=== PATIENT | female | born 1985 | race Caucasian/White ===

== ENCOUNTER → 2020-06-12 | Outpatient (CLI) | payer BC ==
--- NOTE | 2020-06-12 09:32 | MM ---
Reason for exam: screening (asymptomatic). Baseline mammogram. History: Patient is nulliparous. Family history of breast cancer in mother at age 50 and breast cancer in paternal grandmother at age 80. Physical Findings: Nurse did not find any significant physical abnormalities on exam. MG 3D Screening Mammo W/Cad Bilateral CC and MLO view(s) were taken. The breast tissue is heterogeneously dense. This may lower the sensitivity of mammography. Benign appearing calcifications in the right breast. These results were verbally communicated with the patient and result sheet given to the patient on 06/12/20. ASSESSMENT: Benign, BI-RAD 2 RECOMMENDATION: Routine screening mammogram of both breasts in 1 year.
== END | disposition home or self-care (01) ==
LOC: RADMAMWWP 08:33
PROVIDERS: ATTEND Obstetrics & Gynecology
DX: Z12.31 Encounter for screening mammogram for malignant neoplasm of breast (principal)
CPT/HCPCS: 77063; 77067

== ENCOUNTER → 2021-04-04 | Outpatient (CLI) | payer BC ==
--- NOTE | 2021-04-05 11:00 | ECHOF ---
Referral Reason:[id number] syncope and collapse MEASUREMENTS -------- HEIGHT: 162.6 cm WEIGHT: 64.4 kg BP: RVIDd: 2.8 cm (< 3.3) IVSd: 0.7 cm (0.6 - 1.1) LVIDd: 4.6 cm (3.9 - 5.3) LVPWd: 0.8 cm (0.6 - 1.1) IVSs: 1.3 cm LVIDs: 2.9 cm LVPWs: 1.2 cm LA Diam: 3.0 cm (2.7 - 3.8) LAESV Index (A-L): 22.60 ml/m Ao Diam: 2.8 cm (2.0 - 3.7) AV Cusp: 2.1 cm (1.5 - 2.6) MV EXCURSION: 17.440 mm (> 18.000) MV EF SLOPE: 111 mm/s (70 - 150) EPSS: 0.4 cm MV E Ulysses: 1.19 m/s MV DecT: 213 ms MV A Ulysses: 0.48 m/s MV E/A Ratio: 2.47 RAP: 5.00 mmHg RVSP: 26.36 mmHg FINDINGS -------- Sinus rhythm. This was a technically good study. The left ventricular size is normal. Left ventricular wall thickness is normal. Overall left vent ricular systolic function is normal with, an EF between 60 - 65 %. The right ventricle is normal in size. Normal LA size by volume 22+/-6 ml/m2. The right atrium is normal in size. Interatrial and interventricular septum intact. The aortic valve is trileaflet, and appears structurally normal. No aortic stenosis or regurgitation. The mitral valve is normal. Mild tricuspid regurgitation present. Right ventricular systolic pressure is normal at < 35 mmHg. The pulmonic valve is normal. The aortic root size is normal. Normal inferior vena cava with normal inspiratory collapse consistent with estimated right atrial pre ssure of 5 mmHg. There is no pericardial effusion. CONCLUSIONS -------- 1. The left ventricular size is normal. 2. Left ventricular wall thickness is normal. 3. Overall left ventricular systolic function is normal with, an EF between 60 - 65 %. 4. The aortic valve is trileaflet, and appears structurally normal. No aortic stenosis or regurgitati on. 5. Mild tricuspid regurgitation present. 6. There is no pericardial effusion. SOFTWARE CONFIGURATION MANAGER: Rahel Newby RDCS
--- NOTE | 2021-04-26 08:40 | EM ---
14 Day Event monitor note: Patient wore an event monitor for 14 days from 04/04/2021 until 04/17/2021. Findings: Patient's baseline heart rate was normal sinus rhythm. There were no signficant atrial fibrillation, atrial flutter, or ventricular tachycardia episodes. There were no significant pauses greater than 2 seconds. There were a total of 43 symptom activated an auto captured events. Patient's symptoms were not specified however corresponded with normal sinus rhythm. There was occasional asymptomatic sinus bradycardia noted in the morning hours. There were no PVCs and rare PACs which patient was asymptomatic for. Conclusions: Normal 14 day event monitor showing only sinus rhythm. Patient's symptoms corresponded with normal sinus rhythm. [facility]
== END | disposition home or self-care (01) ==
LOC: RADECHMAIN 11:49
PROVIDERS: ATTEND Family Medicine
DX: R55 Syncope and collapse (principal); I07.1 Rheumatic tricuspid insufficiency
CPT/HCPCS: 93270; 93306

== ENCOUNTER 2022-05-01 20:32 | Emergency (ER) | payer BC ==
[2022-05-01 20:38] VITALS: BP 177/74; TEMP 99.2
[2022-05-01] MEDS ORDERED: MORPHINE SULFATE 4 MG/ML SYRINGE IM STA (20:50)
[2022-05-01] MEDS ORDERED: LIDOCAINE 1% INJ 10MG/ML (5 ML VIAL-PF) SQ ONE (20:51)
--- NOTE | 2022-05-01 21:08 | ED ---
Animal Bite HPI - General Chief Complaint: Animal Bite Stated Complaint: Dog Bite both arms Time Seen by Provider: 05/01/22 20:55 Source: patient, family, RN notes reviewed, old records reviewed Mode of arrival: ambulatory - History of Present Illness Initial Comments: Tearful 37-year-old female presents to the emergency room after sustaining multiple puncture wounds and lacerations from her dog. She states that her Pomeranian and her [id number]'s dog were playing and they both went for the same toy, the larger dog grabbed her small dog and she was trying to keep them a part when her dog bit her. She denies any other injuries. She states that both dogs have immunizations up-to-date. Her tetanus shot is up-to-date. MD Complaint: animal bite -: minutes(s) (30) Left: Forearm, Right: Forearm Animal: dog Description: household pet, immunizations UTD Mechanism: bite Pain Description: sharp, constant Severity scale (1-10): 10 Context: playing with animal Associated Symptoms: none - Related Data Patient Tetanus UTD: Yes Previous Rx's Medication Instructions Recorded Amoxic-Pot Clav 875-125Mg 1 tab PO BID 10 Days #20 tab 05/01/22 [Augmentin 875-125] Bacitracin Zinc Oint 1 applic TOPICAL BID 5 Days #28 gm 05/01/22 Allergies Allergy/AdvReac Type Severity Reaction Status Date / Time No Known Allergies Allergy Verified 05/01/22 21:15 Review of Systems ROS Statement: Those systems with pertinent positive or pertinent negative responses have been documented in the HPI. ROS Other: All systems not noted in ROS Statement are negative. Past Medical History Past Medical History: No Reported History History of Any Multi-Drug Resistant Organisms: None Reported Past Surgical History: No Surgical Hx Reported Past Psychological History: Anxiety, Depression Smoking Status: Never smoker Past Alcohol Use History: None Reported Past Drug Use History: None Reported General Exam General appearance: alert, in no apparent distress Head exam: Present: atraumatic Eye exam: Absent: periorbital swelling Respiratory exam: Absent: respiratory distress, accessory muscle use Cardiovascular Exam: Present: tachycardia Extremities exam: Present: full ROM, tenderness, normal capillary refill Left Forearm Wrist exam: Present: other (Multiple punctures) Hand Wrist exam: Present: tenderness, laceration (4cm anterior wrist) Neuro motor exam: Present: wrist extension intact, thumb opposition intact, thumb IP flexion intact, thumb adduction intact Neurosensory exam: Present: radial nerve intact, ulnar nerve intact, median nerve intact Vascular: Present: normal capillary refill. Absent: vascular compromise Right Forearm Wrist exam: Present: full ROM, tenderness, swelling, laceration (4cm) Neuro motor exam: Present: wrist extension intact, thumb opposition intact, thumb IP flexion intact, thumb adduction intact Neurosensory exam: Present: radial nerve intact, ulnar nerve intact, median nerve intact Vascular: Present: normal capillary refill. Absent: vascular compromise Neurological exam: Present: alert, oriented X3 Psychiatric exam: Present: normal affect, normal mood, other (tearful and hyperventilating) Skin exam: Present: warm, normal color. Absent: cyanosis, diaphoretic Course Vital Signs 05/01/22 05/01/22 20:32 22:06 Temperature 99.2 F Pulse Rate 138 H 86 Respiratory 22 18 Rate Blood Pressure 177/74 O2 Sat by Pulse 98 100 Oximetry Procedures - Laceration Laceration #1 Consent Obtained: verbal consent Indication: laceration Site: upper extremity (left anterior wrist) Size (cm): 4 Description: linear Depth: simple, single layer Anesthetic Used: lidocaine 1% Anesthesia Technique: local infiltration Pre-repair: irrigated extensively Type of Sutures: nylon Size of Sutures: 4-0 Number of Sutures: 2 Technique: simple, interrupted Patient Tolerated Procedure: well Laceration #2 Consent Obtained: verbal consent Indication: laceration Site: upper extremity (right forearm) Size (cm): 4 Description: linear Depth: simple, single layer Anesthetic Used: lidocaine 1% Anesthesia Technique: local infiltration Pre-repair: irrigated extensively Type of Sutures: nylon Size of Sutures: 4-0 Number of Sutures: 3 Technique: simple, interrupted Patient Tolerated Procedure: well, no complications Medical Decision Making - Medical Decision Making Patient presents after being bitten multiple times by her Pomeranian and after she tried to break up a fight over a toy between her dog and her [id number]'s dog approximately half hour prior to arrival. Patient has full range of motion. There is no concern for fracture of foreign body. Puncture wounds and lacerations were irrigated copiously with normal saline. Left anterior wrist laceration loosely approximated with 2 sutures. Right forearm laceration loosely approximated with 3 sutures. She states her tetanus shot is up-to-date. The dogs are owned by patient and family and their vaccinations are up-to-date. The dogs will be monitored for the next 10 days . Patient was directed to put a thin layer of bacitracin on each wound and keep covered with Band-Aids for the next 3 days. Take antibiotics as prescribed. Tylenol and or Motrin as needed for pain. She was also given a take-home pack of Tylenol 3 to be taken as needed. Patient and family member are agreeable to discharge. Case discussed with Dr. Reynaga Disposition Clinical Impression: Dog bite Disposition: HOME SELF-CARE Condition: Good Instructions (If sedation given, give patient instructions): Animal Bite (ED) Additional Instructions: Take antibiotics as prescribed. Keep wounds clean and dry with a thin layer of bacitracin to each puncture and laceration site. Sutures to be removed in 7-10 days. Return to the emergency room with any new or concerning symptoms including increased pain, swelling, redness or fevers. Monitor the dogs for any abnormal behavior or illnesses for next 10 days. Prescriptions: Amoxic-Pot Clav 875-125Mg [Augmentin 875-125] 1 tab PO BID 10 Days #20 tab Bacitracin Zinc Oint 1 applic TOPICAL BID 5 Days #28 gm Is patient prescribed a controlled substance at d/c from ED?: No Referrals: Ranjit Cain DO [Primary Care Provider] - 1-2 days Time of Disposition: 21:41
[2022-05-01] MEDS ORDERED: ACET/COD 300 MG/30 MG STARTER PACK 6 TAB BTL PO STA (21:41)
[2022-05-01] MEDS ORDERED: BACITRACIN OINT 1 EACH PACKET TOPICAL ONE (21:41)
[2022-05-01 22:07] VITALS: PULSE 86; RESP 18
== END 2022-05-01 22:06 | disposition home or self-care (01) ==
LOC: EC 20:32
DX: S51.852A Open bite of left forearm, initial encounter (principal); S51.851A Open bite of right forearm, initial encounter; W54.0XXA Bitten by dog, initial encounter
CPT/HCPCS: 99283; 96372; 12004; J2270; J2001

== ENCOUNTER 2023-02-16 12:15 | Day surgery (SDC) | payer OTHER ==
[2023-02-11 09:26] VITALS: BMI 26.9
[~2023-02-16 12:15] MED LIST: LACTATED RINGERS 1,000 ML IV SCH
[2023-02-16 12:47] VITALS: RESP 16; TEMP 98.7
[2023-02-16] MEDS ORDERED: PROPOFOL 10 MG/ML 20 ML VIAL IV ONE (12:53)
--- NOTE | 2023-02-16 12:55 | P.GSHP ---
History of Present Illness H&P Date: 02/16/23 Chief Complaint: GI bleed, hemorrhoids This a 37-year-old female presents today for colonoscopy patient's history of rectal bleeding. Patient has complaints of symptomatic hemorrhoids. Past Medical History Past Medical History: No Reported History Additional Past Medical History / Comment(s): Hemorrhoids. History of Any Multi-Drug Resistant Organisms: None Reported Past Surgical History: No Surgical Hx Reported Additional Past Surgical History / Comment(s): [place] teeth removed. Past Anesthesia/Blood Transfusion Reactions: No Reported Reaction, Motion Sickness Additional Past Anesthesia/Blood Transfusion Reaction / Comment(s): Mom PONV. Past Psychological History: Anxiety, Depression Smoking Status: Never smoker Past Alcohol Use History: Rare Past Drug Use History: None Reported - Past Family History Mother Family Medical History: Cancer Additional Family Medical History / Comment(s): Breast cancer. Medications and Allergies Home Medications Medication Instructions Recorded Confirmed Type Psyllium Husk [Fiber Capsule] 0.4 gm PO DAILY 02/11/23 02/11/23 History diphenhydrAMINE HCL [Benadryl 25 mg PO DIRECTED PRN 02/11/23 02/11/23 History Allergy] norgestimate-ethinyl estradioL 1 each PO QAM 02/11/23 02/11/23 History [Tamika 0.25-0.035 mg Tablet] Allergies Allergy/AdvReac Type Severity Reaction Status Date / Time No Known Allergies Allergy Verified 02/16/23 12:44 Surgical - Exam Vital Signs Temp Pulse Resp BP Pulse Ox 98.7 F 69 16 132/84 97 02/16/23 12:46 02/16/23 12:46 02/16/23 12:46 02/16/23 12:46 02/16/23 12:46 - General well developed, well nourished, no distress - Eyes PERRL - ENT normal pinna - Neck no masses - Respiratory normal expansion - Cardiovascular Rhythm: regular - Abdomen Abdomen: soft, non tender Assessment and Plan Assessment: GI bleed Hemorrhoids We'll perform colonoscopy
--- NOTE | 2023-02-16 13:08 | P.OP ---
Date of Procedure: 02/16/23 Preoperative Diagnosis: Rectal bleeding Postoperative Diagnosis: Internal and external hemorrhoids Procedure(s) Performed: Colonoscopy Anesthesia: RADHA Surgeon: Jose Doherty Pathology: none sent Condition: stable Disposition: PACU Description of Procedure: The patient was placed on the endoscopy table in the lateral position. She received IV sedation. The digital rectal exam was performed. This revealed internal and external hemorrhoids. The flexible colonoscope was then placed patient anus and passed with colon. The colonoscope was advanced into the ascending colon. The cecum was not visualized due to tortuosity valve. Scope was withdrawn. The visualized right colon, transverse colon and descending colon appeared normal. The sigmoid colon appeared normal. Scope was brought back the rectum and this was normal. Scope withdrawn for patient. Internal and external was noted. Bleeding from internal and external hemorrhoids.
[2023-02-16 13:26] VITALS: BP 122/85; PULSE 70
== END 2023-02-16 13:50 | disposition home or self-care (01) ==
LOC: ORWHC2ENDO 12:15
PROVIDERS: ATTEND Surgery
DX: K62.5 Hemorrhage of anus and rectum (principal); F41.9 Anxiety disorder, unspecified; F32.A Depression, unspecified; Z86.59 Personal history of other mental and behavioral disorders; Z98.890 Other specified postprocedural states; Z80.3 Family history of malignant neoplasm of breast; Z87.19 Personal history of other diseases of the digestive system; Z79.899 Other long term (current) drug therapy
CPT/HCPCS: 81025; 45378; J2704

== ENCOUNTER 2023-02-18 07:10 | Day surgery (SDC) | payer OTHER ==
[2023-02-11 09:03] VITALS: BMI 26.9
[~2023-02-18 07:10] MED LIST changes: +ACETAMINOPHEN TAB 500 MG TAB PO PRN; +DEXAMETHASONE SOD PHOSPHATE 4 MG/ML 1 ML VIAL IV ONE; +HEPARIN SODIUM,PORCINE/PF 5,000 UNIT/0.5 ML SYRINGE SQ PRN; +HYDROmorphone 0.5 MG/0.5 ML SYRINGE IVP PRN; +LIDOCAINE 1% (10MG/ML) FOR IV START INTRADERMA PRN; +ONDANSETRON 4 MG/2 ML VIAL IVP ONE; +Pre Op ABX Message 1 EACH MISC MISCELLANE ONE
[2023-02-18] MEDS ORDERED: LACTATED RINGERS 1,000 ML IV ONE (08:00)
[2023-02-18 08:17] VITALS: RESP 16
[2023-02-18] MEDS ORDERED: BUPIVACAIN-EPI 0.25%-1:200,000 30 ML VIAL SQ ONE ×2 (08:25→08:52)
[2023-02-18] MEDS ORDERED: MIDAZOLAM 2 MG/2 ML VIAL ONE (08:26)
[2023-02-18] MEDS ORDERED: LIDOCAINE 2% INJ 20 MG/ML (2 ML VIAL) ONE (08:26)
[2023-02-18] MEDS ORDERED: fentaNYL (PF) 50 MCG/ML 2 ML AMP ONE (08:26)
[2023-02-18] MEDS ORDERED: PROPOFOL 10 MG/ML 20 ML VIAL IV ONE (08:26)
[2023-02-18] MEDS ORDERED: SUCCINYLCHOLINE CHLORIDE 200 MG/10 ML VIAL IV ONE (08:26)
[2023-02-18] MEDS ORDERED: SODIUM CHLORIDE 0.9% 50 ML with ceFAZolin 2,000 MG IV ONE ×2 (08:45)
[2023-02-18 09:14] VITALS: TEMP 96.8
--- NOTE | 2023-02-18 09:24 | P.OP ---
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 She re ceived general endotracheal anesthesia. The patient was then placed in the prone jackknife position. Her anus was prepped and draped usual fashion. The anus was examined. There was an anal fistula at the 12 o'clock position. There are also large internal hemorrhoids located in the left lower position and right lower position. The anal probe was placed official. The patient was unroofed using left cautery. Next the anal retractors placed anus. The right lower hemorrhoidal column was grasped. Allis clamps and excised and sent to pathology after being dissected with Harmonic scissors. The left lower hemorrhoidal column was also excised with electrocautery and Harmonic scissors. The anus.). There is no bleeding seen. Patient tolerated the procedure well.. She was sent to recovery room stable condition.
[2023-02-18 10:26] VITALS: BP 121/79; PULSE 66
== END 2023-02-18 10:53 | disposition home or self-care (01) ==
LOC: OR 07:10
PROVIDERS: ATTEND Surgery
DX: K64.8 Other hemorrhoids (principal); K60.3 Anal fistula; K64.4 Residual hemorrhoidal skin tags; Z79.899 Other long term (current) drug therapy
CPT/HCPCS: 81025; 88304; 46200; 46260; J2250; J0330; J1100; J2405; J0690; J3010; J2704; J1644; J2001

== ENCOUNTER → 2024-02-01 | Outpatient (CLI) | payer OTHER ==
--- NOTE | 2024-02-02 08:28 | MM ---
Reason for Exam: Screening (asymptomatic). Last mammogram was performed 1 year(s) and 2 month(s) ago. Patient History: Menarche at age 13. Patient has no children. Premenopausal. Paternal grandmother had breast cancer, age 80. Mother had breast cancer, age 50. Last menstrual period: 01/27/2024 Risk Values: Chichi 5 year model risk: 1.0%. NCI Lifetime model risk: 17.3%. Prior Study Comparison: 06/12/2020 Bilateral Screening Mammogram, [facility]. 12/30/2022 Bilateral MG 3D screening mammo w/cad, [facility]. Tissue Density: The breasts are heterogeneously dense, which may obscure small masses. Findings: Analyzed By CAD. Calcifications lower outer left breast zone D/C. Additional views are recommended with spot magnification compression views. No additional calcifications noted. No evidence for mass or distortion. Overall Assessment: Incomplete: need additional imaging evaluation, BI-RAD 0 Management: Diagnostic Mammogram of the left breast. . Patient should continue monthly self-breast exams. A clinical breast exam by your physician is recommended on an annual basis. This exam should not preclude additional follow-up of suspicious palpable abnormalities. Note on Chichi scores and lifetime risk: 1. A Chichi score greater than 3% is considered moderate risk. If this is the case, consider specialist referral to assess eligibility for a risk reducing agent. 2. If overall lifetime risk for the development of breast cancer is 20% or higher, the patient may qualify for future screening with alternating mammogram and breast MRI. Electronically signed and approved by: Ford Mcbride M.D. Radiologis
== END | disposition home or self-care (01) ==
LOC: RADMAMWWP 09:19
PROVIDERS: ATTEND Family Medicine
DX: Z12.31 Encounter for screening mammogram for malignant neoplasm of breast (principal); Z80.3 Family history of malignant neoplasm of breast
CPT/HCPCS: 77063; 77067

== ENCOUNTER → 2024-02-03 | Outpatient (CLI) | payer OTHER ==
--- NOTE | 2024-02-03 08:51 | MM ---
Reason for Exam: Additional evaluation requested from abnormal screening. Last screening mammogram was performed less than 1 month ago. Patient History: Menarche at age 13. Patient has no children. Premenopausal. Paternal grandmother had breast cancer, age 80. Mother had breast cancer, age 50. Risk Values: Chichi 5 year model risk: 1.0%. NCI Lifetime model risk: 17.3%. Prior Study Comparison: 06/12/2020 Bilateral Screening Mammogram, [facility]. 12/30/2022 Bilateral MG 3D screening mammo w/cad, [facility]. 02/01/2024 Bilateral MG 3D screening mammo w/cad, [facility]. Tissue Density: Left: The breasts are heterogeneously dense, which may obscure small masses. Findings: Analyzed By CAD. Pattern appears stable. On magnification views indistinct calcifications may be present within the midportion on the craniocaudal view, were not clearly evident on the mediolateral view. These are very indistinct on craniocaudal projection. Recommend short-term follow-up including magnification views for reevaluation. Overall Assessment: Probably benign, BI-RAD 3 Management: Diagnostic Mammogram of the left breast in 6 months. A negative mammogram report should not preclude additional follow up of suspicious palpable abnormalities. Patient should continue monthly self breast exam. A clinical breast exam by your physician is recommended on an annual basis and results should be correlated with mammographic findings. Electronically signed and approved by: Abelardo Bro D.O. Radiologis
== END | disposition home or self-care (01) ==
LOC: RADMAMWWP 08:11
PROVIDERS: ATTEND Family Medicine
DX: R92.332 Mammographic heterogeneous density, left breast (principal); Z80.3 Family history of malignant neoplasm of breast
CPT/HCPCS: 77061; 77065

== ENCOUNTER → 2024-08-30 | Outpatient (CLI) | payer OTHER ==
--- NOTE | 2024-08-30 08:18 | MM ---
Reason for Exam: Follow-up at short interval from prior study. Last screening mammogram was performed 6 month(s) ago. Patient History: Menarche at age 13. Patient has no children. Premenopausal. Paternal grandmother had breast cancer, age 80. Mother had breast cancer, age 50. Risk Values: Chichi 5 year model risk: 1.0%. NCI Lifetime model risk: 17.3%. Prior Study Comparison: 12/30/2022 Bilateral MG 3D screening mammo w/cad, [facility]. 02/01/2024 Bilateral MG 3D screening mammo w/cad, [facility]. 02/03/2024 Left MG 3D work up w/cad LT, [facility]. Tissue Density: Left: The breasts are heterogeneously dense, which may obscure small masses. Findings: Analyzed By CAD. The previously questioned lower outer quadrant asymmetric density does not persist and there is no significant change from prior exams. Overall Assessment: Benign, BI-RAD 2 Management: Screening Mammogram of both breasts in 6 months. Results were given to the patient verbally at the time of exam. Patient should continue monthly self-breast exams. A clinical breast exam by your physician is recommended on an annual basis. This exam should not preclude additional follow-up of suspicious palpable abnormalities. Note on Chichi scores and lifetime risk: 1. A Chichi score greater than 3% is considered moderate risk. If this is the case, consider specialist referral to assess eligibility for a risk reducing agent. 2. If overall lifetime risk for the development of breast cancer is 20% or higher, the patient may qualify for future screening with alternating mammogram and breast MRI. [facility], , 08/30/2024 8:14 AM. Electronically signed and approved by: Gregory Haney M.D. Radiologist
== END | disposition home or self-care (01) ==
LOC: RADMAMWWP 07:55
PROVIDERS: ATTEND Family Medicine
CPT/HCPCS: 77061; 77065

== ENCOUNTER → 2025-02-14 | Outpatient (CLI) | payer OTHER ==
--- NOTE | 2025-02-14 10:37 | MM ---
Reason for Exam: Screening (asymptomatic). Last screening mammogram was performed 12 month(s) ago. Patient History: Menarche at age 13. Patient has no children. Premenopausal. Paternal grandmother had breast cancer, age 80. Mother had breast cancer, age 50. Last menstrual period: 01/16/2025 Risk Values: Chichi 5 year model risk: 1.1%. NCI Lifetime model risk: 17.1%. Prior Study Comparison: 02/01/2024 Bilateral MG 3D screening mammo w/cad, [facility]. 02/03/2024 Left MG 3D work up w/cad LT, [facility]. 08/30/2024 Left MG 3D diag mammo w/cad LT, [facility]. Tissue Density: The breasts are extremely dense, which lowers the sensitivity of mammography. Findings: Analyzed By CAD. There is no suspicious new group of microcalcifications or new suspicious mass in either breast. Overall Assessment: Negative, BI-RAD 1 Management: Screening Mammogram of both breasts in 1 year. Some advise annual bilateral breast ultrasound surveillance in patients with background dense tissue. Patient should continue monthly self-breast exams. A clinical breast exam by your physician is recommended on an annual basis. This exam should not preclude additional follow-up of suspicious palpable abnormalities. Note on Chichi scores and lifetime risk: 1. A Chichi score greater than 3% is considered moderate risk. If this is the case, consider specialist referral to assess eligibility for a risk reducing agent. 2. If overall lifetime risk for the development of breast cancer is 20% or higher, the patient may qualify for future screening with alternating mammogram and breast MRI. [facility], , 02/14/2025 10:33 AM. Electronically signed and approved by: Elieser Gray M.D.
== END | disposition home or self-care (01) ==
LOC: RADMAMWWP 08:53
PROVIDERS: ATTEND Family Medicine
DX: Z12.31 Encounter for screening mammogram for malignant neoplasm of breast (principal); R92.343 Mammographic extreme density, bilateral breasts; Z80.3 Family history of malignant neoplasm of breast
CPT/HCPCS: 77063; 77067